=== PATIENT | male | born 1995 | race Caucasian/White ===

== ENCOUNTER 2016-11-10 17:27 | Emergency (ER) | payer SELFPAY ==
[2016-11-10] MEDS ORDERED: CLINDAMYCIN HCL 150 MG CAPSULE PO ONE (19:40)
[2016-11-10] MEDS ORDERED: CEFTRIAXONE INJ 1000 MG VIAL IV ONE (19:40)
--- NOTE | 2016-11-10 20:05 | ER Document Report ---
HPI - HPI Pain Level: 4 Notes: Patient is a 21-year-old male presents the ED complaining of an abscess infection between his third and fourth digit of his left foot 1 month. Patient states that he does have pain with ambulation. He has not noticed any discharge or red streaks. He still eating and drinking without any problems. He has not had any cujd-jly-vldhtoo meds for his symptoms. He has not placed anything on his abscess. Denies any fever, headache, URI, sore throat, chest pain, palpitations, syncope, cough, wheeze, shortness of breath, abdominal pain , nausea/vomiting/diarrhea, dysuria. Denies any drug allergies. Patient does not take any medications daily. No other significant past medical history. Denies IV drug use. + smoker. - ROS Notes: REVIEW OF SYSTEMS: CONSTITUTIONAL : Denies fever, chills, or sweats. Denies recent illness. EENT: Denies eye, ear, throat, or mouth pain or symptoms. Denies nasal or sinus congestion or discharge. Denies throat, tongue, or mouth swelling or difficulty swallowing. CARDIOVASCULAR: Denies chest pain. Denies palpitations or racing or irregular heart beat. Denies ankle edema. RESPIRATORY: Denies cough, cold, or chest congestion. Denies shortness of breath, difficulty breathing, or wheezing. GASTROINTESTINAL: Denies abdominal pain or distention. Denies nausea, vomiting , or diarrhea. Denies blood in vomitus, stools, or per rectum. Denies black, tarry stools. Denies constipation. GENITOURINARY: Denies difficulty urinating, painful urination, burning, frequency, blood in urine, or discharge. MUSCULOSKELETAL: see hpi SKIN: see hpi NEUROLOGICAL: Denies confusion or altered mental status. Denies passing out or loss of consciousness. Denies dizziness or lightheadedness. Denies headache. Denies weakness or paralysis or loss of use of either side. Denies problems with gait or speech. Denies sensory loss, numbness, or tingling. Denies seizures. PSYCHIATRIC: Denies anxiety or stress. Denies depression, suicidal ideation, or homicidal ideation. ALL OTHER SYSTEMS REVIEWED AND NEGATIVE. Dictation was performed using [employer] voice recognition software - DERM Skin Color: Normal Past Medical History - Social History Smoking Status: Current Every Day Smoker Family History: Reviewed & Not Pertinent Patient has suicidal ideation: No Patient has homicidal ideation: No Renal/ Medical History: Denies: Hx Peritoneal Dialysis Vertical Provider Document - CONSTITUTIONAL Agree With Documented VS: Yes Notes: PHYSICAL EXAMINATION: GENERAL: Well-appearing, well-nourished and in no acute distress. LUNGS: Breath sounds clear to auscultation bilaterally and equal. No wheezes rales or rhonchi. HEART: Regular rate and rhythm without murmurs, rubs, gallops. ABDOMEN: Soft, nontender, nondistended abdomen. No guarding, no rebound. No masses appreciated. Normal bowel sounds present. No CVA tenderness bilaterally. Musculoskeletal: Lt foot/ankle: FROM to passive/active. Strength 5+/5. Non-tender. No lymphangitis prox to abscess. No prox lymphadenopathy. Lt 3rd-4th toes: + erythema, abscess, mild induration, + tenderness. No discharge or streaks. The infected area primarily encompasses the entire medial left 4th digit and wraps around on the plantar surface near the MTP jt. Extremities: No cyanosis, clubbing, or edema b/l. Peripheral pulses 2+ LE's b/ l. Capillary refill less than 2 seconds. NEUROLOGICAL: Normal sensory, motor exams PSYCH: Normal mood, normal affect. SKIN: see MSK exam. - INFECTION CONTROL TRAVEL OUTSIDE OF THE [place] IN LAST 30 DAYS: No - RESPIRATORY O2 Sat by Pulse Oximetry: 98 Course - Re-evaluation Re-evalutation: 11/10/16 22:05 Patient is an afebrile, well-hydrated, 21-year-old male who presents the ED with an abscess between his third and fourth digits of the left foot, primarily to the fourth medial digit. Vitals are stable. PE did not show any signs of proximal lymphangitis. Low suspicion for any sepsis, septic joint, or other systemic illness at this time. Reviewed case with German Peres, who recommended an MRI with contrast, ESR, CRP, CBC, CMP, and a follow-up with the orthopedic office in the next 1-2 days. CBC/CMP/CRP/ESR unremarkable at this time. MRI pending. Rocephin 1 g given today along with 300 mg clindamycin p.o. We will discharge in stable condition. Infection does not appear to be aggressive as it has been ongoing for 1month. Per Ortho pt can be discharged with f/u in 1-2 days. Conservative measures for symptoms. Recheck with orthopedics as directed. Return to the ED with any worsening/concerning symptoms otherwise as reviewed discharge. Patient is in agreement. - Vital Signs Vital signs: Temp Pulse Resp BP Pulse Ox 98.9 F 83 16 159/102 H 98 11/10/16 17:39 11/10/16 17:39 11/10/16 17:39 11/10/16 17:39 11/10/16 17:39 - Laboratory Result Diagrams: 11/10/16 20:35 11/10/16 20:35 Discharge - Discharge Clinical Impression: Abscess Condition: Stable Disposition: HOME, SELF-CARE Instructions: Abscess ([facility]) Additional Instructions: Tylenol/ibuprofen as needed Keep the foot/toes clean Epsom salt soaks Bacitracin ointment to the area Take antibiotic as directed F/u with Orthopedics in the next 1-2 days. Call tomorrow for an appointment per Dr. De La Cruz. Return to the ED with any worsening pain/swelling, numbness/tingling, muscle weakness/paralysis, red streaks, development of fever, or any other worsening/ concerning symptoms otherwise as needed. Prescriptions: Clindamycin HCl [Cleocin 300 mg Capsule] 300 mg PO QID #40 capsule Forms: Elevated Blood Pressure, Smoking Cessation Education Referrals: RAZA JOSHI DO [Primary Care Provider] - Follow up as needed [facility] [Provider Group] - Follow up tomorrow (Needs scheduled for abscess appointment per Dr. De La Cruz MRI, CBC, CMP, ESR, and CRP ordered in the ED Rocephin 1g and Clindamycin started)
[2016-11-10 20:52] LABS: ABSOLUTE BASOPHILS # (AUTO) 0.1 10^3/uL (0.0-0.2); ABSOLUTE EOSINOPHILS # (AUTO) 0.1 10^3/uL (0.0-0.6); ABSOLUTE MONOCYTES (AUTO) 0.8 10^3/uL (0.1-1.4); BASOPHILS % (AUTO) 0.8 % (0-2); EOSINOPHILS % (AUTO) 1.7 % (0-6); HEMATOCRIT 47.5 % (37.9-51.0); HEMOGLOBIN 16.1 g/dL (13.5-17.0); HGB HCT DIFFERENCE 0.8; LYMPHOCYTES % (AUTO) 37.2 % (13-45); MEAN CORPUSCULAR HEMOGLOBIN 32.8 pg (27.0-33.4); MEAN CORPUSCULAR HGB CONC 33.8 g/dL (32.0-36.0); MEAN CORPUSCULAR VOLUME 97 fl (80-97); MONOCYTES % (AUTO) 10.1 % (3-13); RED CELL DISTRIBUTION WIDTH 12.7 % (11.5-14.0); SEGMENTED NEUTROPHILS % (AUTO) 50.2 % (42-78); WHITE BLOOD COUNT 7.9 10^3/uL (4.0-10.5)
[2016-11-10 21:09] LABS: ALANINE AMINOTRANSFERASE 27 U/L (21-72); ALKALINE PHOSPHATASE 82 U/L (38-126); ANION GAP 13 (5-19); ASPARTATE AMINO TRANSFERASE 29 U/L (17-59); BILIRUBIN,DIRECT 0.3 mg/dL (0.0-0.4); BILIRUBIN,TOTAL 0.8 mg/dL (0.2-1.3); BLOOD UREA NITROGEN 15 mg/dL (7-20); CALCIUM 10.1 mg/dL (8.4-10.2); CARBON DIOXIDE 25 mmol/L (22-30); CHLORIDE 102 mmol/L (98-107); CREATININE RESULT 0.85 mg/dL (0.52-1.25); GLUCOSE 93 mg/dL (75-110); SODIUM 140.1 mmol/L (137-145)
[2016-11-10 21:10] LABS: C-REACTIVE PROTEIN < 5.0 mg/L (<10.0)
[2016-11-10 21:28] LABS: ERYTHROCYTE SEDIMENTATION RATE 6 mm/hr (0-15)
[2016-11-10] MEDS ORDERED: CEFTRIAXONE INJ 1000 MG VIAL IM ONE (22:26)
[2016-11-10] MEDS ORDERED: LIDOCAINE 1% INJ-PF (10 MG/ML) 30 ML SDV INJ ONE (22:26)
--- NOTE | 2016-11-10 22:39 | RADIOLOGY REPORT (SQ) ---
EXAM DESCRIPTION: MRI LT LOWER EXTREMITY COMBO COMPLETED DATE/TIME: 11/10/2016 10:12 pm REASON FOR STUDY: abscess b/w 3rd-4th digits left foot COMPARISON: None. TECHNIQUE: Multiplanar imaging of the left foot to include T1-weighted, postcontrast T1-weighted, an d T2-weighted images. CONTRAST TYPE AND DOSE: 15 mL Prohance. RENAL FUNCTION: None required. The patient is less than 50 years old. LIMITATIONS: None. FINDINGS: BONE MARROW: No marrow signal alteration. Specifically no marrow replacement or marrow ed lisbeth. No evidence for osteomyelitis. No cortical break through. SOFT TISSUES: There is a 2.4 cm well-circumscribed lobulated soft tissue mass between the 3rd and 4th digit. Minimal rim enhancement. Central signal of fluid. No central enhancement. No adjacent inf lammatory changes in the fat. No bone erosion. Extends along the dorsal aspect of the 4th middle ph alanx. OTHER: No other significant finding. IMPRESSION: Nonspecific soft tissue mass containing fluid with rim enhancement between the 3rd and 4 th digits of the left foot. Consistent with abscess. Sebaceous cyst in the differential. No osteomyelitis. TECHNICAL DOCUMENTATION: JOB ID: [id number] 2018 [employer]- All Rights Reserved
[2016-11-10 22:52] VITALS: BP 151/94
== END 2016-11-10 22:53 | disposition home or self-care (01) ==
LOC: ER 17:27
DX: L02.612 Cutaneous abscess of left foot (principal); F17.200 Nicotine dependence, unspecified, uncomplicated
CPT/HCPCS: 99283; 96372; 36415; 85025; 85652; 86140; 80053; 73720; A9576; J3490; J0696

== ENCOUNTER 2017-06-27 14:11 | Emergency (ER) | payer SELFPAY ==
--- NOTE | 2017-06-27 15:50 | ER Document Report ---
ED General - General Chief Complaint: Constipation Stated Complaint: POSSIBLE CONSTIPATION/ BACK PAIN Time Seen by Provider: 06/27/17 15:44 Mode of Arrival: Ambulatory Information source: Patient Notes: Patient presents with 2 complaints. He complains of low back pain that he has had for "years". States he has had x-rays approximate 9 years ago that were unremarkable. No other workup for this. No recent injuries. He did not any problems with urine. He states he has chronic constipation. He denies any numbness or tingling around the rectal or genital areas. The low back pain is intermittent. Is worse with certain movements and better with rest. It is an aching sensation. It does not radiate. Patient also states that he has constipation that he has had for several years. He states he takes laxatives chronically to move his bowels. He states he has tried some laxatives at his primary care doctor has given him with this causes blisters around his rectum and buttocks. TRAVEL OUTSIDE OF THE [place] IN LAST 30 DAYS: No - Related Data Allergies/Adverse Reactions: No Known Allergies Allergy (Verified 06/27/17 14:12) Past Medical History - General Information source: Patient - Social History Smoking Status: Current Every Day Smoker Chew tobacco use (# tins/day): No Frequency of alcohol use: Occasional Drug Abuse: None Family History: Reviewed & Not Pertinent Patient has suicidal ideation: No Patient has homicidal ideation: No Neurological Medical History: Reports: Hx Migraine - mild cp Renal/ Medical History: Denies: Hx Peritoneal Dialysis Past Surgical History: Reports: Hx Abdominal Surgery - bilateral hernia - Immunizations Hx Diphtheria, Pertussis, Tetanus Vaccination: Yes Review of Systems - Review of Systems Constitutional: denies: Chills, Fever Cardiovascular: denies: Chest pain, Palpitations Respiratory: denies: Cough, Short of breath Physical Exam - Vital signs Vitals: Temp Pulse Resp BP Pulse Ox 99.0 F 67 18 138/72 H 99 06/27/17 14:15 06/27/17 14:15 06/27/17 14:15 06/27/17 14:15 06/27/17 14:15 Interpretation: Hypertensive - General General appearance: Appears well, Alert In distress: None - Respiratory Respiratory status: No respiratory distress Chest status: Nontender Breath sounds: Normal Chest palpation: Normal - Cardiovascular Rhythm: Regular Heart sounds: Normal auscultation Murmur: No - Abdominal Inspection: Normal Distension: No distension Bowel sounds: Normal Tenderness: Nontender Organomegaly: No organomegaly - Back Back: Normal, Nontender - Extremities General upper extremity: Normal inspection, Nontender, Normal color, Normal ROM , Normal temperature General lower extremity: Normal inspection, Nontender, Normal color, Normal temperature, Normal weight bearing. No: Zelalem's sign - Neurological Neuro grossly intact: Yes Cognition: Normal Orientation: AAOx4 [place] Coma Scale Eye Opening: Spontaneous [place] Coma Scale Verbal: Oriented [place] Coma Scale Motor: Obeys Commands Chemo Coma Scale Total: 15 Speech: Normal Sensory: Normal - Psychological Associated symptoms: Normal affect, Normal mood - Skin Skin Temperature: Warm Skin Moisture: Dry Skin Color: Normal Course - Vital Signs Vital signs: Temp Pulse Resp BP Pulse Ox 99.0 F 67 18 138/72 H 99 06/27/17 14:15 06/27/17 14:15 06/27/17 14:15 06/27/17 14:15 06/27/17 14:15 Discharge - Discharge Clinical Impression: Constipation Qualifiers: Constipation type: unspecified constipation type Qualified Code(s): K59.00 - Constipation, unspecified Low back pain Qualifiers: Chronicity: chronic Back pain laterality: bilateral Sciatica presence: without sciatica Qualified Code(s): M54.5 - Low back pain; G89.29 - Other chronic pain; G89.29 - Other chronic pain Condition: Stable Disposition: HOME, SELF-CARE Instructions: Constipation ([facility]), Chronic Back Pain ([facility]) Prescriptions: Peg 3350/Na Sulf,Bicarb,Cl/KCl [Golytely Solution 4000 ml] 4,000 ml PO DAILY #1 bottle Forms: Return to Work
[2017-06-27 16:16] VITALS: BP 143/74
== END 2017-06-27 16:22 | disposition home or self-care (01) ==
LOC: ER 14:11
DX: K59.00 Constipation, unspecified (principal); Z79.899 Other long term (current) drug therapy; M54.5 Low back pain; G89.29 Other chronic pain; F17.200 Nicotine dependence, unspecified, uncomplicated
CPT/HCPCS: 99283

== ENCOUNTER 2017-07-10 01:55 | Emergency (ER) | payer SELFPAY ==
[2017-07-10 03:11] VITALS: BP 138/91
--- NOTE | 2017-07-10 03:25 | ER Document Report ---
ED General - General Chief Complaint: Head Injury without LOC Stated Complaint: HEAD INJURY Time Seen by Provider: 07/10/17 03:17 Mode of Arrival: Ambulatory Information source: Patient, Relative Notes: 21-year-old male resents with complaints of head injury this prior to arrival. Patient notes he missed a step while intoxicated climbing down from a tree house and struck his head. He denies LOC denies any back pain notes some mild right arm pain TRAVEL OUTSIDE OF THE [place] IN LAST 30 DAYS: No - HPI Onset: Just prior to arrival Onset/Duration: Sudden Quality of pain: Achy Severity: Mild Pain Level: 1 Associated symptoms: Other Exacerbated by: Movement - Of the right upper extremity Relieved by: Denies Similar symptoms previously: No Recently seen / treated by doctor: No - Related Data Allergies/Adverse Reactions: No Known Allergies Allergy (Verified 06/27/17 14:12) Past Medical History - Social History Smoking Status: Never Smoker Cigarette use (# per day): No Chew tobacco use (# tins/day): No Smoking Education Provided: No Family History: Reviewed & Not Pertinent Neurological Medical History: Reports: Hx Migraine - mild cp Renal/ Medical History: Denies: Hx Peritoneal Dialysis Past Surgical History: Reports: Hx Abdominal Surgery - bilateral hernia - Immunizations Hx Diphtheria, Pertussis, Tetanus Vaccination: Yes Review of Systems - Review of Systems Notes: REVIEW OF SYSTEMS: CONSTITUTIONAL : Denies fever, chills, or sweats. Denies recent illness. EENT: Denies eye, ear, throat, or mouth pain or symptoms. Denies nasal or sinus congestion or discharge. Denies throat, tongue, or mouth swelling or difficulty swallowing. CARDIOVASCULAR: Denies chest pain. Denies palpitations or racing or irregular heart beat. Denies ankle edema. RESPIRATORY: Denies cough, cold, or chest congestion. Denies shortness of breath, difficulty breathing, or wheezing. GASTROINTESTINAL: Denies abdominal pain or distention. Denies nausea, vomiting , or diarrhea. Denies blood in vomitus, stools, or per rectum. Denies black, tarry stools. Denies constipation. GENITOURINARY: Denies difficulty urinating, painful urination, burning, frequency, blood in urine, or discharge. MUSCULOSKELETAL: Admits to right arm injury SKIN: Denies rash, lesions or sores. HEMATOLOGIC : Denies easy bruising or bleeding. LYMPHATIC: Denies swollen, enlarged glands. NEUROLOGICAL: Admits to head injury PSYCHIATRIC: Denies anxiety or stress. Denies depression, suicidal ideation, or homicidal ideation. ALL OTHER SYSTEMS REVIEWED AND NEGATIVE. PHYSICAL EXAMINATION: GENERAL: Well-appearing, well-nourished and in no acute distress. C collar in place. GCS 15 intoxicated HEAD: Atraumatic, normocephalic. EYES: Pupils equal round and reactive to light strabismus, extraocular movements intact, sclera anicteric, conjunctiva are normal. ENT: Nares patent, oropharynx clear without exudates. Moist mucous membranes. No hemanotympanum . No blood in nares. No dental fracture NECK: Normal range of motion, supple without lymphadenopathy. Trachea midline LUNGS: Breath sounds clear to auscultation bilaterally and equal. No wheezes rales or rhonchi. HEART: Regular rate and rhythm without murmurs. Pulses intact all throughout. ABDOMEN: Soft, nontender, nondistended abdomen. No guarding, no rebound. No masses appreciated. Musculoskeletal: Normal range of motion, no pitting or edema. No cyanosis. Hip non tender, stable. NEUROLOGICAL: Cranial nerves grossly intact. Normal speech, normal gait. Normal sensory, motor, and reflex exams. PSYCH: Normal mood, normal affect. SKIN: Ecchymosis of the right bicep, 4 contusions of the right posterior rib U/S fast exam notes no obvious free fluid but this is a nondiagnostic evaluation Physical Exam - Vital signs Vitals: Temp Pulse BP Pulse Ox 98.6 F 111 H 138/91 H 95 07/10/17 03:07 07/10/17 03:07 07/10/17 03:07 07/10/17 03:07 Course - Re-evaluation Re-evalutation: 07/10/17 03:28 CT is pending given the patient is intoxicated - Vital Signs Vital signs: Temp Pulse Resp BP Pulse Ox 98.6 F 111 H 138/91 H 95 07/10/17 03:07 07/10/17 03:07 07/10/17 03:07 07/10/17 03:07
--- NOTE | 2017-07-10 04:04 | RADIOLOGY REPORT (SQ) ---
EXAM DESCRIPTION: CT HEAD WITHOUT CLINICAL HISTORY: fall, intoxicated COMPARISON: None available TECHNIQUE: Axial CT of the head obtained from the skull apex to the skull base without contrast. FINDINGS: No acute intracranial hemorrhage identified. No mass, mass effect, shift of the midline, abnormal extra-axial fluid collection or CT evidence of acute ischemic change identified. The ventricular system is unremarkable. No acute abnormalities of the supratentorial white matter, basal ganglia, cerebellum, or brainstem. Polypoid mucosal thickening of the maxillary sinuses. Mastoid air cells are well aerated. No skull fracture identified. Visualized orbits and globes are unremarkable. DLP: 1162.97 mGy-cm IMPRESSION: 1. No acute intracranial abnormality identified. This exam was performed according to our departmental dose-optimization program, which includes automated exposure control, adjustment of the mA and/or kV according to patient size and/or use of iterative reconstruction technique.
--- NOTE | 2017-07-10 04:12 | RADIOLOGY REPORT (SQ) ---
EXAM DESCRIPTION: CT CERVICAL SPINE WITHOUT CLINICAL HISTORY: fall, intoxicated COMPARISON: None available TECHNIQUE: Axial CT of the cervical spine obtained without contrast. FINDINGS: Alignment of the cervical spine is maintained without evidence of subluxation. The atlantoaxial, atlantodental, and occipitoatlantal intervals are preserved. No fracture identified. Vertebral body height preserved. Prevertebral soft tissues are unremarkable. Intervertebral disc height preserved. Visualized skull base is intact. No fracture of the visualized facial bones. Visualized mastoid air cells and paranasal sinuses are well aerated. Visualized thyroid is unremarkable. No cervical lymphadenopathy. No pneumothorax in the visualized lung apices. DLP: 468.15 mGy-cm IMPRESSION: 1. No acute fracture or subluxation of the cervical spine. This exam was performed according to our departmental dose-optimization program, which includes automated exposure control, adjustment of the mA and/or kV according to patient size and/or use of iterative reconstruction technique.
--- NOTE | 2017-07-10 04:15 | RADIOLOGY REPORT (SQ) ---
EXAM DESCRIPTION: CT CHEST WITHOUT CONTRAST CLINICAL HISTORY: fall, intoxicated COMPARISON: None Available. TECHNIQUE: Axial CT images of the chest without IV contrast from the thoracic inlet through the diaphragm. FINDINGS: Chest: Visualized thyroid gland is unremarkable. Great vessels have normal anatomic configuration. No abnormalities of the thoracic aorta by noncontrast CT criteria. No cardiomegaly, pericardial effusion, or coronary artery atherosclerosis. No abnormalities of visualized esophagus. Pneumomediastinum. No mediastinal lymphadenopathy. Lung windows demonstrate no consolidation, pneumothorax, or pleural effusion. No abnormalities of visualized trachea. No acute osseous abnormalities. No fractures identified. Limited images of the upper abdomen demonstrate no abnormalities of visualized liver, spleen, pancreas, adrenal glands, or gallbladder. Possible horseshoe kidney. Kidneys are incompletely visualized. DLP: 595.49 mGy-cm IMPRESSION: 1. No acute pulmonary process identified. This exam was performed according to our departmental dose-optimization program, which includes automated exposure control, adjustment of the mA and/or kV according to patient size and/or use of iterative reconstruction technique.
== END 2017-07-10 04:21 | disposition home or self-care (01) ==
LOC: ER 01:55
DX: S09.90XA Unspecified injury of head, initial encounter (principal); S39.92XA Unspecified injury of lower back, initial encounter; S40.021A Contusion of right upper arm, initial encounter; S20.211A Contusion of right front wall of thorax, initial encounter; W18.09XA Striking against other object with subsequent fall, initial encounter; Y92.89 Other specified places as the place of occurrence of the external cause; Z72.89 Other problems related to lifestyle
CPT/HCPCS: 70450; 71250; 72125; 99284